=== PATIENT | female | born 1985 | race Caucasian/White ===

== ENCOUNTER 2017-02-18 11:29 | Emergency (ER) | payer OTHER ==
[2017-02-18 13:12] LABS: BILIRUBIN NEGATIVE (NEGATIVE); BLOOD NEGATIVE Ery/uL (NEGATIVE); CLARITY CLEAR (CLEAR); COLOR YELLOW (YELLOW); GLUCOSE (U) NORMAL (NORMAL); KETONE (U) NEGATIVE (NEGATIVE); LEUKOCYTES NEGATIVE Leu/uL (NEGATIVE); NITRITE NEGATIVE (NEGATIVE); PROTEIN NEGATIVE (NEGATIVE); SPECIFIC GRAVITY <=1.005 (1.001-1.030); UROBILINOGEN 0.2 mg/dL (0.2-1.0); pH 6.5 (5.0-9.0)
[2017-02-18 13:13] LABS: BASOPHIL 0.5 % (0-2); EOSINOPHIL 2.7 % (0-5); HCT 36.4 % (37.0-47.0); HGB 11.8 g/dl (12.5-16.0); LYMPHOCYTE 31.9 % (15-48); MCH 29.2 pg (25.0-31.0); MCHC 32.4 g/dL (32.0-36.0); MCV 90.1 fL (78.0-100.0); MONOCYTE 5.6 % (0-12); MPV 10.5 fL (6.0-9.5); NEUTROPHIL 59.3 % (41-80); PLT 141 K/uL (150-400); RBC 4.04 M/uL (4.20-5.40); RDW 12.5 % (11.5-14.0); WBC 5.9 K/uL (4.0-10.5)
[2017-02-18 13:27] LABS: AMPHETAMINES NEGATIVE (NEGATIVE); BARBITURATES NEGATIVE (NEGATIVE); BENZODIAZEPINES NEGATIVE (NEGATIVE); COCAINE POSITIVE (NEGATIVE); MARIJUANA (THC) NEGATIVE (NEGATIVE); METHADONE NEGATIVE (NEGATIVE); TRICYCLIC ANTIDEPRESSANT NEGATIVE (NEGATIVE)
[2017-02-18 13:32] LABS: CREATININE 0.9 mg/dL (0.5-1.0)
== END 2017-02-18 14:34 | disposition home or self-care (01) ==
LOC: FER 11:29
PROVIDERS: Nurse Practitioner
DX: K27.9 Peptic ulcer, site unspecified, unspecified as acute or chronic, without hemorrhage or perforation (principal); B96.81 Helicobacter pylori [H. pylori] as the cause of diseases classified elsewhere
CPT/HCPCS: 36415; 74000; 80048; 80305; 81003; 82550; 85025; 87339